=== PATIENT | female | born 1950 | race Caucasian/White ===

== ENCOUNTER 2019-11-11 | Emergency (ER) | payer MEDICARE, BC | END 2019-11-11 16:05 | disposition home or self-care (01) | PROC: 0HQ1XZZ Repair Face Skin, External Approach (ICD-10-PCS; principal; 2019-11-11) | DX: S01.81XA Laceration without foreign body of other part of head, initial encounter (principal); W22.8XXA Striking against or struck by other objects, initial encounter; Y92.511 Restaurant or cafe as the place of occurrence of the external cause ==